=== PATIENT | female | born 1940 | race Two or more races ===

== ENCOUNTER 2024-03-08 11:15 | Inpatient (IN) | payer OTHER ==
[~2024-03-08] VITALS: Ht 160 cm; Wt 72.6 kg
[2024-03-08] MEDS ORDERED: GLUMETZA500 MG PO (12:51)
[2024-03-08] MEDS ORDERED: MONTELUKAST SOD10 MG PO (12:51)
[2024-03-08] MEDS ORDERED: ATACAND HCT 321 EAC1 PO (12:51)
[2024-03-08] MEDS ORDERED: ATORVASTATIN CA10 MG PO (12:51)
[2024-03-08] MEDS ORDERED: NORVASC2.5 M1 PO (12:52)
[2024-03-08] MEDS ORDERED: MAXFE CAPLET1 EAC1 PO (12:52)
[2024-03-08] MEDS ORDERED: ELIQUIS5 MG PO (12:52)
[2024-03-08 12:53] VITALS: BP 124/65
[2024-03-16] MEDS ORDERED: CEFTRIAXONE SODIUM 2,000 MG VIAL ONE (14:15)
[2024-03-16] MEDS ORDERED: BUPIVACAINE HCL/Mpf 0.5% 10ML VIAL ONE (14:15)
[2024-03-16] MEDS ORDERED: LIDOCAINE HCL 1%/EPINEPHRINE 20ML VIAL IJ ONE (14:15)
[2024-03-16] MEDS ORDERED: METRONIDAZOLE/SODIUM CHLORIDE 500 MG/100 ML PIGGYBACK IV ONE (14:16)
[2024-03-16] MEDS ORDERED: POVIDONE-IODINE 118 ML BOTT TOP ONE (14:41)
[2024-03-16] MEDS ORDERED: INFED50 MG/ML (15:27)
[2024-03-16] MEDS ORDERED: ATORVASTATIN CA20 MG (15:27)
[2024-03-16] MEDS ORDERED: CANDESARTAN CIL32 MG (15:28)
[2024-03-16] MEDS ORDERED: OxyCODONE HCL 5 MG TABLET (ROXICODONE) PO PRN (15:30)
[2024-03-16] MEDS ORDERED: DEXTROSE 50 % IN WATER 0.5 G/ML DISP.SYRIN IV PRN ×2 (15:30→19:00)
[2024-03-16] MEDS ORDERED: ONDANSETRON HCL 2 MG/ML VIAL IV PRN (15:30)
[2024-03-16] MEDS ORDERED: RINGERS SOLUTION,LACTATED 1,000 ML IV SCH (15:30)
[2024-03-16] MEDS ORDERED: MORPHINE SULFATE 4 MG/ML CARTRIDGE IV PRN (15:30)
[2024-03-16] MEDS ORDERED: DIBUCAINE 30 GM TUBE ONE (15:31)
[2024-03-16] MEDS ORDERED: HEMOSTATIC MATRIX 1 KIT KIT TOP ONE (15:31)
[2024-03-16] MEDS ORDERED: SIMETHICONE 125 MG CAPSULE PO SCH (17:00)
[2024-03-16] MEDS ORDERED: CELECOXIB 200 MG CAPSULE PO SCH (17:00)
[2024-03-16] MEDS ORDERED: GABAPENTIN 300 MG CAPSULE PO SCH (17:00)
[2024-03-16] MEDS ORDERED: HYOSCYAMINE SULFATE 0.125 MG TAB.SUBL SL SCH (17:00)
[2024-03-16] MEDS ORDERED: METOCLOPRAMIDE HCL 5 MG/ML VIAL IV SCH (17:00)
[2024-03-16] MEDS ORDERED: POLYETHYLENE GLYCOL 3350 17 GM BLIST.PACK PO SCH (17:00)
[2024-03-16] MEDS ORDERED: MORPHINE SULFATE 2 MG/ML CARTRIDGE IV ONE ×2 (17:30→18:00)
[2024-03-16] MEDS ORDERED: ONDANSETRON HCL 2 MG/ML VIAL ONE (18:30)
[2024-03-16] MEDS ORDERED: MORPHINE SULFATE 4 MG/ML VIAL IV ONE (18:30)
[2024-03-16] MEDS ORDERED: INSULIN LISPRO 1,000 UNIT/10 ML UNITS SUBCUTANEO PRN (19:00)
[2024-03-16] MEDS ORDERED: ACETAMINOPHEN 500 MG GEL..CAP PO SCH (20:00)
[2024-03-16 21:00] LABS: HEMATOCRIT 30.7 % (36.0-45.00); HEMOGLOBIN 10.5 g/dL (12.0-15.00); MEAN CELL VOLUME 82.2 fL (80.00-100.00); MEAN CORPUSCULAR HEMOGLOBIN 28.1 pg (27.00-32.0); MEAN CORPUSCULAR HGB CONC 34.2 g/dl (32.0-36.0); PLATELET COUNT 210 K/uL (150-450); RED BLOOD COUNT 3.73 M/uL (4.00-6.00); RED CELL DISTRIBUTION WIDTH 15.5 % (11.5-14.5)
[2024-03-16] MEDS ORDERED: FAMOTIDINE/PF 20 MG/2 ML VIAL IV PUSH SCH (21:00)
[2024-03-16 22:31] VITALS: BP 97/53; O2SAT 98
[2024-03-17 02:00] VITALS: BP 113/63; O2SAT 95
[2024-03-17 07:08] LABS: HEMATOCRIT 30.3 % (36.0-45.00); HEMOGLOBIN 10.3 g/dL (12.0-15.00); MEAN CELL VOLUME 83.2 fL (80.00-100.00); MEAN CORPUSCULAR HEMOGLOBIN 28.2 pg (27.00-32.0); MEAN CORPUSCULAR HGB CONC 33.9 g/dl (32.0-36.0); PLATELET COUNT 189 K/uL (150-450); RED BLOOD COUNT 3.64 M/uL (4.00-6.00)
[2024-03-17 07:45] LABS: ALBUMIN 3.1 gm/dL (3.4-5.0); CALCIUM 8.6 mg/dL (8.5-10.1); CREATININE SERUM 1.35 mg/dL (0.55-1.02); GFR 37.54; MAGNESIUM 1.7 mg/dL (1.8-2.4); PHOSPHOROUS 2.4 mg/dL (2.5-4.9); POTASSIUM 4.11 mEq/L (3.5-5.1)
[2024-03-17 08:00] VITALS: BP 93/50; O2SAT 95
[2024-03-17] MEDS ORDERED: LACTOBACILLUS ACIDOPHILUS 1 CAP CAP PO SCH (09:00)
[2024-03-17] MEDS ORDERED: LACTULOSE 20 G/30 ML BLIST.PACK PO SCH (09:00)
[2024-03-17] MEDS ORDERED: ENALAPRILAT DIHYDRATE 1.25 MG/ML VIAL IV PRN (14:30)
[2024-03-17 16:34] VITALS: O2SAT 96
[2024-03-17] MEDS ORDERED: ENOXAPARIN SODIUM 40 MG/0.4 ML SYRINGE SUBCUTANEO SCH (17:00)
[2024-03-17] MEDS ORDERED: MONTELUKAST SODIUM 10 MG TABLET PO SCH (17:00)
[2024-03-17 17:29] VITALS: BP 92/57; O2SAT 100
[2024-03-17 20:05] VITALS: O2SAT 95
[2024-03-17] MEDS ORDERED: AMLODIPINE BESYLATE 2.5 MG TABLET PO SCH (21:00)
[2024-03-18 01:24] VITALS: BP 75/50; O2SAT 98
[2024-03-18 07:01] VITALS: O2SAT 99
[2024-03-18 08:00] VITALS: BP 86/50; O2SAT 98
[2024-03-18] MEDS ORDERED: CANDESARTAN CILEXETIL 32 MG TABLET PO SCH (09:00)
[2024-03-18] MEDS ORDERED: ENOXAPARIN SODIUM 40 MG/0.4 ML SYRINGE SUBCUTANEO SCH (09:00)
[2024-03-18] MEDS ORDERED: HYDROCHLOROTHIAZIDE 12.5 MG CAPSULE PO SCH (09:00)
== END 2024-03-18 11:57 | disposition home or self-care (01) | DRG 334 ==
LOC: SURG 03-16 06:19 → O/R 03-16 06:19 → OB/GYN 03-16 11:15 → SURG 03-16 17:13
PROVIDERS: ADMIT Colon & Rectal Surgery; ATTEND Colon & Rectal Surgery
PROC: 0DBP4ZZ Excision of Rectum, Percutaneous Endoscopic Approach (ICD-10-PCS; principal; 2024-03-16 12:15)
PROC: 4A12X4Z Monitoring of Cardiac Electrical Activity, External Approach (ICD-10-PCS; 2024-03-17)
DX: C20 Malignant neoplasm of rectum (principal)

== ENCOUNTER 2024-03-19 10:00 | Inpatient (IN) | payer OTHER ==
[~2024-03-19] VITALS: Ht 160 cm; Wt 72.6 kg
[~2024-03-19 10:00] MED LIST: ATACAND HCT 321 EAC1 PO; ATORVASTATIN CA10 MG PO; ATORVASTATIN CA20 MG; CANDESARTAN CIL32 MG; ELIQUIS5 MG PO; GLUMETZA500 MG PO; INFED50 MG/ML; MAXFE CAPLET1 EAC1 PO; MONTELUKAST SOD10 MG PO; NORVASC2.5 M1 PO
[2024-03-19] MEDS ORDERED: PANTOPRAZOLE SODIUM 40 MG/VIAL VIAL IV ONE (10:30)
[2024-03-19] MEDS ORDERED: 0.9 % SODIUM CHLORIDE 1,000 ML IV SCH ×2 (10:30→12:00)
--- NOTE | 2024-03-19 10:40 | NUR ---
SE RECIBE PACIENTE ALERTA Y ORIENTADA X3 EN COMPANIA DE FAMILIAR Y PARAMEDICOS DE AMBULANCIA LOS CUALES REFIEREN TRAER A P[ACIENTE A CAUSA DE ANEMIA Y DEBILIDAD. AL MOMENTO SE OBSERVA PACIENTYE CANALIZADA EN BRAZO DERECHO, CON SONGA URINARIA BAJANDO POR GRAVEDAD Y TUBO NASO GASTRICO EN FOSA NASAL DERECHA. SE MIDEN S/V, SE REALIZA EKG Y SE UBICA.
[2024-03-19] MEDS ORDERED: PIPERACILLIN/TAZOBACTAM SODIUM 3.375 GM VIAL IV ONE (11:00)
[2024-03-19] MEDS ORDERED: DILTIAZEM HCL 50 MG/10 ML VIAL IV ONE (11:00)
[2024-03-19] MEDS ORDERED: DILTIAZEM HCL 25 MG/5 ML VIAL IV ONE (11:04)
[2024-03-19 11:43] LABS: HEMATOCRIT 25.8 % (36.0-45.00); MEAN CELL VOLUME 82.1 fL (80.00-100.00); MEAN CORPUSCULAR HGB CONC 33.9 g/dl (32.0-36.0); PLATELET COUNT 147 K/uL (150-450); RED BLOOD COUNT 3.14 M/uL (4.00-6.00); RED CELL DISTRIBUTION WIDTH 16.2 % (11.5-14.5)
[2024-03-19 11:44] LABS: HEMOGLOBIN 8.7 g/dL (12.0-15.00); MEAN CORPUSCULAR HEMOGLOBIN 27.7 pg (27.00-32.0)
[2024-03-19 11:45] LABS: ERYTHROCYTE SEDIMENTATION RATE 117 mm/hr
[2024-03-19] MEDS ORDERED: PIPERACILLIN/TAZOBACTAM SODIUM 3.375 GM in 0.9 % SODIUM CHLORIDE 100 ML IV SCH (12:00)
[2024-03-19] MEDS ORDERED: PIPERACILLIN/TAZOBACTAM SODIUM 3.375 GM VIAL IV SCH (12:00)
[2024-03-19] MEDS ORDERED: AMIODARONE HCL 50 MG/ML AMPUL IV ONE ×2 (12:15→13:19)
[2024-03-19 12:19] LABS: ALBUMIN 2.5 gm/dL (3.4-5.0); BILIRUBIN TOTAL 0.38 mg/dL (0.3-1.2); CALCIUM 7.6 mg/dL (8.5-10.1); GFR 22.92; GLOBULINA 3.6 G/DL (2.4-3.5); POTASSIUM 3.42 mEq/L (3.5-5.1); TOTAL PROTEIN 6.1 gm/dL (6.4-8.2)
[2024-03-19 12:22] LABS: C-REACTIVE PROTEIN 25.4 MG/DL (0.00-0.29); CREATININE SERUM 2.07 mg/dL (0.55-1.02)
[2024-03-19] MEDS ORDERED: DEXTROSE 50 % IN WATER 0.5 G/ML DISP.SYRIN IV PRN (13:00)
[2024-03-19] MEDS ORDERED: hydrALAZINE HCL 20 MG VIAL IV PRN (13:00)
[2024-03-19] MEDS ORDERED: INSULIN LISPRO 1,000 UNIT/10 ML UNITS SUBCUTANEO PRN (13:00)
[2024-03-19 13:11] LABS: INR 1.16; PARTIAL THROMBOPLASTIN TIME 35.3 SECONDS (22.0-34.0); PROTHROMBIN TIME 12.5 SECONDS (9.0-11.5)
[2024-03-19] MEDS ORDERED: POTASSIUM CHLORIDE IN WATER 100 ML IV NR (13:15)
[2024-03-19] MEDS ORDERED: MAGNESIUM SULFATE IN WATER 4 GM/100 ML PIGGYBACK IV NR (13:15)
[2024-03-19] MEDS ORDERED: POTASSIUM CHLORIDE IN WATER 40 MEQ/100 ML PIGGYBAG IV ONE (13:19)
[2024-03-19] MEDS ORDERED: FAMOTIDINE/PF 20 MG in 0.9 % SODIUM CHLORIDE 100 ML IV SCH (13:46)
[2024-03-19] MEDS ORDERED: NOREPINEPHRINE BITARTRATE 1 MG/ML AMPUL IV SCH (14:00)
[2024-03-19] MEDS ORDERED: ONDANSETRON HCL 2 MG/ML VIAL IV PRN (14:00)
[2024-03-19] MEDS ORDERED: MEPERIDINE HCL/PF 25 MG/ML VIAL IV PRN (14:30)
[2024-03-19] MEDS ORDERED: NOREPINEPHRINE BITARTRATE 8 MG in DEXTROSE 5 % IN WATER 250 ML IV SCH (14:30)
[2024-03-19 15:47] LABS: PH,URINE 5.5 (5.0-8.0); URINE APPEARANCE Clear; URINE BILIRRUBIN Negative (NEGATIVE); URINE BLOOD Moderate; URINE COLOR Yellow; URINE GLUCOSE Negative (NEGATIVE); URINE KETONE Negative (NEGATIVE); URINE LEUKOCYTE Negative; URINE NITRATE Negative; URINE UROBILINOGEN 0.2 E.U./dl
[2024-03-19 15:51] LABS: URINE BACTERIA 26.9 uL (0.0-1933); URINE EPITHELIAL CELLS 10.4 uL (0.0-38.8); URINE RBC 5.8 uL (0.0-20.8); URINE WBC 13.6 uL (0.0-23.2)
[2024-03-19 15:57] LABS: URINE CAST 0.58 uL (0.0-1.40); URINE PROTEIN 100 (NEGATIVE)
[2024-03-19 17:13] VITALS: BP 105/64; O2SAT 97
[2024-03-20] VITALS (14 sets, daily range): BP systolic 107–145; BP diastolic 69–91; O2SAT 95–100
[2024-03-20] MEDS ORDERED: ENOXAPARIN SODIUM 30 MG/0.3 ML SYRINGE SUBCUTANEO SCH (09:00)
[2024-03-20 16:29] LABS: HEMATOCRIT 32.4 % (36.0-45.00); HEMOGLOBIN 10.8 g/dL (12.0-15.00); MEAN CELL VOLUME 83.8 fL (80.00-100.00); MEAN CORPUSCULAR HEMOGLOBIN 27.8 pg (27.00-32.0); MEAN CORPUSCULAR HGB CONC 33.2 g/dl (32.0-36.0); PLATELET COUNT 173 K/uL (150-450); RED BLOOD COUNT 3.87 M/uL (4.00-6.00); RED CELL DISTRIBUTION WIDTH 15.5 % (11.5-14.5)
[2024-03-20] MEDS ORDERED: AA 4.25%/CAL/LYTES/DEXT 5% 1,000 ML PERIFERAL SCH (17:00)
[2024-03-20 17:01] LABS: ALBUMIN 2.5 gm/dL (3.4-5.0); BILIRUBIN TOTAL 0.91 mg/dL (0.3-1.2); CALCIUM 8.3 mg/dL (8.5-10.1); CREATININE SERUM 0.99 mg/dL (0.55-1.02); GFR 53.7; GLOBULINA 3.8 G/DL (2.4-3.5); POTASSIUM 3.71 mEq/L (3.5-5.1); TOTAL PROTEIN 6.3 gm/dL (6.4-8.2)
[2024-03-20 17:03] LABS: CHOL HDL RATIO 11.3 (0-5.0); CREATININE SERUM 0.97 mg/dL (0.55-1.02); GFR 54.98; POTASSIUM 3.84 mEq/L (3.5-5.1)
[2024-03-21] VITALS (10 sets, daily range): BP systolic 106–140; BP diastolic 69–85; O2SAT 95–98
[2024-03-21] MEDS ORDERED: FAMOTIDINE/PF 20 MG in 0.9 % SODIUM CHLORIDE 100 ML IV SCH (09:00)
[2024-03-21 12:14] LABS: HEMATOCRIT 26.2 % (36.0-45.00); HEMOGLOBIN 9.2 g/dL (12.0-15.00); MEAN CELL VOLUME 81.9 fL (80.00-100.00); MEAN CORPUSCULAR HEMOGLOBIN 28.9 pg (27.00-32.0); MEAN CORPUSCULAR HGB CONC 35.3 g/dl (32.0-36.0); PLATELET COUNT 147 K/uL (150-450); RED BLOOD COUNT 3.19 M/uL (4.00-6.00); RED CELL DISTRIBUTION WIDTH 15.9 % (11.5-14.5)
[2024-03-21 12:43] LABS: INR 1.11; PARTIAL THROMBOPLASTIN TIME 23.9 SECONDS (22.0-34.0)
[2024-03-21 13:35] LABS: ALBUMIN 2.3 gm/dL (3.4-5.0); BILIRUBIN TOTAL 0.47 mg/dL (0.3-1.2); BILIRUBIN,CONJUGATED 0.12 mg/dL (0.0-0.2); BILIRUBIN,UNCONJUGATED 0.35 mg/dL (0.0-0.6); CALCIUM 7.7 mg/dL (8.5-10.1); CHOL HDL RATIO 8.6 (0-5.0); CREATININE SERUM 0.85 mg/dL (0.55-1.02); GFR 64.03; GLOBULINA 2.8 G/DL (2.4-3.5); MAGNESIUM 2.3 mg/dL (1.8-2.4); POTASSIUM 3.93 mEq/L (3.5-5.1); TOTAL PROTEIN 5.1 gm/dL (6.4-8.2)
[2024-03-21 13:48] LABS: UREA CLEARANCE 10.1 ML/MIN
[2024-03-21] MEDS ORDERED: SODIUM CHLORIDE 0.45 % 1,000 ML IV SCH (17:00)
[2024-03-21] MEDS ORDERED: METOPROLOL TARTRATE 25 MG TABLET PO SCH (17:00)
[2024-03-21] MEDS ORDERED: ENOXAPARIN SODIUM 60 MG/0.6 ML SYRINGE SUBCUTANEO SCH (21:00)
[2024-03-22] VITALS (10 sets, daily range): BP systolic 131–150; BP diastolic 77–82; O2SAT 89–99
[2024-03-22] MEDS ORDERED: MEPERIDINE HCL/PF 25 MG/ML VIAL IV PRN (03:15)
[2024-03-22 07:11] LABS: ALBUMIN 2.5 gm/dL (3.4-5.0); BILIRUBIN TOTAL 0.45 mg/dL (0.3-1.2); C-REACTIVE PROTEIN 8.68 MG/DL (0.00-0.29); CALCIUM 8.3 mg/dL (8.5-10.1); CREATININE SERUM 0.87 mg/dL (0.55-1.02); GFR 62.33; MAGNESIUM 2.4 mg/dL (1.8-2.4); PHOSPHOROUS 2.6 mg/dL (2.5-4.9); POTASSIUM 4.02 mEq/L (3.5-5.1); TOTAL PROTEIN 5.5 gm/dL (6.4-8.2)
[2024-03-22 11:38] LABS: ABG PO2 80.2 mmHg (80-100); ABG pCO2 31.6 mmHg (35-45); BASE EXCESS -3.9 mmol/l; BICARBONATE 19.6 mmol/l (23-25); SaO2 95.7 %; Tco2 20.5 mmol/l; o2 35 %; puncture site RADIAL RIGHT
[2024-03-22 11:39] LABS: allen test SATISFACTORY
[2024-03-22] MEDS ORDERED: DEXTROSE 5 % IN WATER 1,000 ML IV SCH (17:45)
[2024-03-22] MEDS ORDERED: FUROsemide 20 MG/2 ML VIAL IV SCH (22:58)
[2024-03-23] VITALS (9 sets, daily range): BP systolic 123–148; BP diastolic 74–83; O2SAT 90–98
[2024-03-23 07:47] LABS: ALBUMIN 2.4 gm/dL (3.4-5.0); ALKALINE PHOSPHATASE 63 U/L (50-136); ALT/SGPT 21 U/L (12-78); ANION GAP 9 (10.0-20.0); AST/SGOT 19 U/L (15-37); BILIRUBIN TOTAL 0.33 mg/dL (0.3-1.2); BLOOD UREA NITROGEN 25 mg/dL (7-18); BUN CREA RATIO 33 (7.0-25.0); CALCIUM 8.4 mg/dL (8.5-10.1); CARBON DIOXIDE 24 mEq/L (21-32); CHLORIDE 114 mmol/L (98-107); CREATININE SERUM 0.76 mg/dL (0.55-1.02); GFR 72.86; GLUCOSE FASTING 154 mg/dL (65-100); OSMOLALITY SERUM 292 MOSM/KG (275-295); PHOSPHOROUS 2.8 mg/dL (2.5-4.9); POTASSIUM 3.73 mEq/L (3.5-5.1); SODIUM 143 mmol/L (136-145); TOTAL PROTEIN 5.4 gm/dL (6.4-8.2)
[2024-03-23 07:48] LABS: C-REACTIVE PROTEIN 7.17 MG/DL (0.00-0.29); CKMB < 1.0 NG/ML (0.5-3.6)
[2024-03-23 08:05] LABS: HEMATOCRIT 29.2 % (36.0-45.00); MEAN CELL VOLUME 82.7 fL (80.00-100.00); MEAN CORPUSCULAR HEMOGLOBIN 28.4 pg (27.00-32.0); MEAN CORPUSCULAR HGB CONC 34.3 g/dl (32.0-36.0); PLATELET COUNT 174 K/uL (150-450); RED BLOOD COUNT 3.53 M/uL (4.00-6.00); RED CELL DISTRIBUTION WIDTH 16.3 % (11.5-14.5)
[2024-03-24] VITALS (9 sets, daily range): BP systolic 136–162; BP diastolic 73–82; O2SAT 93–100
[2024-03-24] MEDS ORDERED: FUROsemide 20 MG/2 ML VIAL IV SCH (09:00)
[2024-03-24] MEDS ORDERED: ENALAPRILAT DIHYDRATE 1.25 MG/ML VIAL IV PRN (15:30)
[2024-03-24] MEDS ORDERED: CANDESARTAN CILEXETIL 32 MG TABLET PO SCH (17:00)
[2024-03-24] MEDS ORDERED: ATORVASTATIN CALCIUM 10 MG TABLET PO SCH (17:00)
[2024-03-24] MEDS ORDERED: HYDROCHLOROTHIAZIDE 12.5 MG CAPSULE PO SCH (17:00)
[2024-03-24] MEDS ORDERED: AMLODIPINE BESYLATE 2.5 MG TABLET PO SCH (17:00)
[2024-03-24] MEDS ORDERED: EMOLLIENTS 6 OZ BOTTLE TOP SCH (17:00)
[2024-03-25] VITALS (8 sets, daily range): BP systolic 122–174; BP diastolic 68–78; O2SAT 90–99
[2024-03-26] VITALS (11 sets, daily range): BP systolic 115–150; BP diastolic 55–78; O2SAT 91–98
[2024-03-27 04:59] VITALS: O2SAT 94
[2024-03-27 08:30] VITALS: BP 121/58; O2SAT 96
[2024-03-27 09:42] VITALS: O2SAT 97
[2024-03-27 12:47] VITALS: O2SAT 95
== END 2024-03-27 13:10 | disposition home or self-care (01) | DRG 872 ==
LOC: ER 10:00 → SURG 12:34 → ICU-2 16:36 → SURG 03-21 16:43
PROVIDERS: General Practice; Internal Medicine; Internal Medicine Infectious Disease; Surgery; ADMIT Colon & Rectal Surgery; ATTEND Colon & Rectal Surgery
PROC: B246ZZZ Ultrasonography of Right and Left Heart (ICD-10-PCS; principal; 2024-03-19)
PROC: 30233L1 Transfusion of Nonautologous Fresh Plasma into Peripheral Vein, Percutaneous Approach (ICD-10-PCS; 2024-03-20)
PROC: 02HV33Z Insertion of Infusion Device into Superior Vena Cava, Percutaneous Approach (ICD-10-PCS; 2024-03-21)
PROC: 4A12X4Z Monitoring of Cardiac Electrical Activity, External Approach (ICD-10-PCS; 2024-03-21)
PROC: 5A0935A Assistance with Respiratory Ventilation, Less than 24 Consecutive Hours, High Flow/Velocity Cannula (ICD-10-PCS; 2024-03-22)
PROC: BB24ZZZ Computerized Tomography (CT Scan) of Bilateral Lungs (ICD-10-PCS; 2024-03-23)
DX: A41.9 Sepsis, unspecified organism (principal); C20 Malignant neoplasm of rectum; N17.8 Other acute kidney failure; E87.0 Hyperosmolality and hypernatremia; D63.0 Anemia in neoplastic disease; E11.9 Type 2 diabetes mellitus without complications; Z79.4 Long term (current) use of insulin; E78.49 Other hyperlipidemia; I48.91 Unspecified atrial fibrillation